=== PATIENT | female | born 1990 | race Caucasian/White ===

== ENCOUNTER 2018-08-18 19:30 | Emergency (ER) | payer BC ==
[2018-08-18] MEDS ORDERED: Sulfamethox/Trimethoprim DS 800/160* TAB PO ONE (19:45)
[2018-08-18 19:49] VITALS: BP 120/67
--- NOTE | 2018-08-19 15:46 | UC ---
- Progress Note Progress Note: no imaging Course/Dx - Diagnoses Provider Diagnoses: Paronychia Discharge - Sign-Out/Discharge Documenting (check all that apply): Post-Discharge Follow Up All imaging exams completed and their final reports reviewed: No Studies - Discharge Plan Condition: Stable Disposition: HOME Prescriptions: Sulfamethox/Trimethoprim DS* [Bactrim DS 800/160 TAB*] 1 tab PO BID #12 tab Patient Education Materials: Ibuprofen (By mouth), Paronychia (ED), Warm Compress or Soak (ED) Referrals: ROBERTO Villanueva [Medical Doctor] - If Needed - Billing Disposition and Condition Condition: STABLE Disposition: Home
--- NOTE | 2018-08-24 16:38 | UC ---
Hand/Wrist HPI - HPI Summary HPI Summary: pain swelling and drainage around left index finger nail---tender to touch-no fever--minimal streaking to pip - History Of Current Complaint Chief Complaint: UCUpperExtremity Stated Complaint: INFECTED LEFT INDEX FINGER Time Seen by Provider: 08/18/18 19:40 Hx Obtained From: Patient Hx Last Menstrual Period: 07/20/18 ?: No Mechanism Of Injury: unknown Onset/Duration: Gradual Onset, Lasting Days, Still Present Severity Initially: Mild Severity Currently: Moderate Pain Intensity: 6 Pain Scale Used: 0-10 Numeric Character Of Pain: Aching, Throbbing Aggravating Factor(s): Movement Alleviating Factor(s): Rest Associated Signs And Symptoms: Positive: Swelling, Redness Related History: Dominant Hand Right - Allergies/Home Medications Allergies/Adverse Reactions: Allergies Allergy/AdvReac Type Severity Reaction Status Date / Time No Known Allergies Allergy Verified 07/27/13 08:51 PMH/Surg Hx/FS Hx/Imm Hx Previously Healthy: Yes - Surgical History Surgical History: None - Family History Known Family History: Positive: None - Social History Occupation: Employed Full-time Lives: With Family Alcohol Use: Occasionally Substance Use Type: None Smoking Status (MU): Never Smoked Tobacco When Did the Patient Quit Smoking/Using Tobacco: 3 weeks - Immunization History Most Recent Influenza Vaccination: 05/2014 Review of Systems All Other Systems Reviewed And Are Negative: Yes Constitutional: Positive: Negative Skin: Positive: Other - pain swelling redness erythama around left index finger nail Eyes: Positive: Negative ENT: Positive: Negative Respiratory: Positive: Negative Cardiovascular: Positive: Negative Gastrointestinal: Positive: Negative Genitourinary: Positive: Negative Motor: Positive: Negative Neurovascular: Positive: Negative Musculoskeletal: Positive: Negative Neurological: Positive: Negative Psychological: Positive: Negative Is Patient Immunocompromised?: No Physical Exam Triage Information Reviewed: Yes Appearance: Well-Appearing, No Pain Distress, Well-Nourished Vital Signs: Initial Vital Signs Temp 97.9 F 08/18/18 19:45 Pulse 75 08/18/18 19:45 Resp 14 08/18/18 19:45 BP 120/67 08/18/18 19:45 Pulse Ox 99 08/18/18 19:45 Vital Signs Reviewed: Yes Eye Exam: Normal Eyes: Positive: Conjunctiva Clear ENT Exam: Normal ENT: Positive: Normal ENT inspection, Hearing grossly normal. Negative: Trismus , Muffled voice, Hoarse voice, Dental tenderness Dental Exam: Normal Neck exam: Normal Neck: Positive: Supple, Nontender Respiratory Exam: Normal Respiratory: Positive: Chest non-tender, No respiratory distress, No accessory muscle use Cardiovascular Exam: Normal Cardiovascular: Positive: RRR, Pulses Normal, Brisk Capillary Refill Musculoskeletal Exam: Normal Musculoskeletal: Positive: Strength Intact, ROM Intact, No Edema Neurological Exam: Normal Neurological: Positive: Alert, Muscle Tone Normal Psychological Exam: Normal Skin Exam: Normal Hand/Wrist Course/Dx - Course Course Of Treatment: bactrim warm soaks tylenol ibuprofen follow with pcp prn - Differential Dx/Diagnosis Provider Diagnosis: Paronychia Discharge - Sign-Out/Discharge Documenting (check all that apply): Patient Departure All imaging exams completed and their final reports reviewed: No Studies - Discharge Plan Condition: Stable Disposition: HOME Prescriptions: Sulfamethox/Trimethoprim DS* [Bactrim DS 800/160 TAB*] 1 tab PO BID #12 tab Patient Education Materials: Ibuprofen (By mouth), Paronychia (ED), Warm Compress or Soak (ED) Referrals: ROBRETO Villanueva [Medical Doctor] - If Needed - Billing Disposition and Condition Condition: STABLE Disposition: Home
== END 2018-08-18 19:54 | disposition home or self-care (01) ==
LOC: UCCORT 19:30
DX: L03.012 Cellulitis of left finger (principal); Z87.891 Personal history of nicotine dependence
CPT/HCPCS: 99202; A9270-GY; G0463

== ENCOUNTER 2019-04-29 17:39 | Emergency (ER) | payer BC ==
[2019-04-29 19:47] VITALS: BP 123/70
--- NOTE | 2019-04-29 19:58 | UC ---
Skin Complaint HPI - HPI Summary HPI Summary: Patient is a 28-year-old female presenting with what she believes was a bug bite on her abdomen below her umbilicus that she noticed yesterday. States that there was some pus that first and redness and size of a quarter. Patient states no more drainage but notes rapid increase in redness around the area today. She notices that it is now hard and tender. States she feels "off" and nauseous. Denies fever and chills. Denies vomiting. - History of Current Complaint Chief Complaint: UCSkin Stated Complaint: SKIN COMPLAINT Hx Obtained From: Patient Hx Last Menstrual Period: 04/26/19 Onset/Duration: Gradual Onset, Lasting Hours Onset Severity: Mild Current Severity: Severe Pain Intensity: 9 Pain Scale Used: 0-10 Numeric - Allergy/Home Medications Allergies/Adverse Reactions: Allergies Allergy/AdvReac Type Severity Reaction Status Date / Time No Known Allergies Allergy Verified 04/29/19 19:36 PMH/Surg Hx/FS Hx/Imm Hx Previously Healthy: Yes - Surgical History Surgical History: None - Family History Known Family History: Positive: None, Non-Contributory - Social History Occupation: Employed Full-time Alcohol Use: Rare Substance Use Type: None Smoking Status (MU): Heavy Every Day Tobacco Smoker Type: Cigarettes Amount Used/How Often: 10 ppd When Did the Patient Quit Smoking/Using Tobacco: 3 weeks Household Exposure Type: Cigarettes - Immunization History Most Recent Influenza Vaccination: 05/2014 Review of Systems All Other Systems Reviewed And Are Negative: Yes Constitutional: Positive: Negative. Negative: Fever, Chills Skin: Positive: Other - abdominal rash Respiratory: Positive: Negative Cardiovascular: Positive: Negative Gastrointestinal: Positive: Nausea. Negative: Abdominal Pain, Vomiting Musculoskeletal: Positive: Negative Neurological: Positive: Negative Physical Exam Triage Information Reviewed: Yes Appearance: Well-Appearing, No Pain Distress, Well-Nourished Vital Signs: Initial Vital Signs Temp 97.8 F 04/29/19 19:38 Pulse 91 04/29/19 19:38 Resp 16 04/29/19 19:38 BP 123/70 04/29/19 19:38 Pulse Ox 100 04/29/19 19:38 Vital Signs Reviewed: Yes Eyes: Positive: Conjunctiva Clear ENT: Positive: Hearing grossly normal Neck: Positive: Supple Respiratory Exam: Normal Respiratory: Positive: Lungs clear, Normal breath sounds, No respiratory distress Cardiovascular Exam: Normal Cardiovascular: Positive: RRR Neurological: Positive: Alert Psychological: Positive: Age Appropriate Behavior Skin: Positive: Other - large area of erythema and warmth extending inferiorly from umbiliucs. central induration and scabbed lesion noted. no active drainage or bleeding. tender to palpation Course/Dx - Course Course Of Treatment: Patient received shot of rocephin here along with dose of Bactrim. I prescribed bactrim for home as well. Outline around redness was drawn and she was told to go to ED if it rapidly increases or becomes worse over the next day. Also instructed to go to ED if she experiences fever or nausea and vomiting. Patient voiced understanding and agreed with treatment plan. - Diagnoses Provider Diagnosis: Cellulitis of abdominal wall Discharge ED - Sign-Out/Discharge Documenting (check all that apply): Patient Departure All imaging exams completed and their final reports reviewed: No Studies - Discharge Plan Condition: Stable Disposition: HOME Prescriptions: Sulfamethox/Trimethoprim DS* [Bactrim DS 800/160 TAB*] 1 tab PO BID #13 tab Patient Education Materials: Cellulitis (ED) Referrals: [facility] [Outside] - If Needed [facility] [Outside] - If Needed Additional Instructions: As discussed, take Bactrim as prescribed for the treatment of your skin infection. You received your first dose here around 8:15pm. Keep the area clean and dry. Go to the emergency room if you experience fever, increasing redness and warmth to the area, drainage, or nausea and vomiting. - Billing Disposition and Condition Condition: STABLE Disposition: Home
[2019-04-29] MEDS ORDERED: Lidocaine 1% MPF ** 5 ML VIAL IM ONE (20:07)
[2019-04-29] MEDS ORDERED: cefTRIAXone VIAL(*) 250 MG VIAL IM ONE (20:07)
[2019-04-29] MEDS ORDERED: Sulfamethox/Trimethoprim DS 800/160* TAB PO ONE (20:07)
== END 2019-04-29 20:41 | disposition home or self-care (01) ==
LOC: UCCORT 17:39
DX: L03.311 Cellulitis of abdominal wall (principal); R11.0 Nausea; F17.210 Nicotine dependence, cigarettes, uncomplicated
CPT/HCPCS: 96372; 99212; A9270-GY; G0463; J0696